=== PATIENT | male | born 1990 | race Caucasian/White ===

== ENCOUNTER 2024-04-29 19:45 | Observation (INO) | payer BC ==
[2024-04-29 20:12] LABS: Glucose,Whole Blood 126 mg/dL (70-110)
[2024-04-29 20:40] LABS: HCT 47.5 % (39.0-53.0); HGB 16.6 gm/dL (13.0-17.5); MCH 29.8 pg (25.0-35.0); MCHC 34.9 g/dL (31.0-37.0); MCV 85.5 fL (80.0-100.0); Mean Platelet Volume 6.9; Platelet Count 247 k/uL (150-450); RBC 5.56 m/uL (4.30-5.90); RDW 12.6 % (11.5-15.5)
[2024-04-29 20:57] LABS: INR 1.1 (<1.2)
[2024-04-29 21:00] LABS: ALT 28 U/L (4-49); AST 28 U/L (17-59); African American GFR (CKD) >90 (>60 ml/min/1.73 sqM); Albumin 4.9 g/dL (3.5-5.0); Alcohol <10 mg/dL; Alkaline Phosphatase 54 U/L (38-126); Anion Gap 17 mmol/L; Blood Urea Nitrogen 27 mg/dL (9-20); Calcium 9.4 mg/dL (8.4-10.2); Carbon Dioxide 16 mmol/L (22-30); Chloride 103 mmol/L (98-107); Glucose 126 mg/dL (74-99); Non-African American GFR(CKD) >90 (>60 ml/min/1.73 sqM); Potassium 4.5 mmol/L (3.5-5.1); Sodium 136 mmol/L (137-145); Total Bilirubin 1.6 mg/dL (0.2-1.3); Total Protein 7.8 g/dL (6.3-8.2)
[2024-04-29 21:31] LABS: Appearance,Urine Clear (Clear); Bilirubin,Urine Negative (Negative); Blood,Urine Small (Negative); Color,Urine Yellow; Glucose,Urine (UA) Negative (Negative); Ketones,Urine 4+ (Negative); Leukocyte Esterase,Urine Negative (Negative); Mucus,Urine Occasional /hpf; Nitrite,Urine Negative (Negative); PH, Urine 6.5 (5.0-8.0); Protein,Urine Trace (Negative); RBC,Urine 20 /hpf (0-5); Specific Gravity,Urine 1.032 (1.001-1.035); Urobilinogen,Urine <2.0 mg/dL (<2.0); WBC,Urine 1 /hpf (0-5)
[2024-04-29 21:34] LABS: Cocaine Screen,Urine Not Detected (NotDetected); Phencyclidine Screen,Urine Not Detected (NotDetected); Urn Cannabinoid Scrn Not Detected (NotDetected)
[2024-04-29 21:35] LABS: Amphetamine Screen,Urine Not Detected (NotDetected); Barbiturate Screen,Urine Not Detected (NotDetected); Benzodiazepines Screen,Urine Not Detected (NotDetected); Methadone Screen, Urine Not Detected (NotDetected); Opiate Screen,Urine Not Detected (NotDetected); Oxycodone Screen, Urine Not Detected (NotDetected); Tricyclic Antidepressant,Urine Not Detected (NotDetected)
[2024-04-29 21:42] LABS: Band Neutrophils % 4 %; Lymphocytes # (M) 0.17 k/uL (1.0-4.8); Monocytes # (M) 1.36 k/uL (0-1.0); Neutrophils % (M) 87 %; Nucleated Red Blood Cells 0 /100 WBC (0-0); Total Cells Counted 100; Toxic Vacuolation Present
[2024-04-29] MEDS: HYDROmorphone 1 MG/ML 1 ML SYRINGE IM STA (21:48)
[2024-04-29] MEDS: METOCLOPRAMIDE 5 MG/ML 2 ML VIAL IM STA (21:48)
[2024-04-29] MEDS: SODIUM CHLORIDE 0.9% 1,000 ML IV ONE (22:00)
[2024-04-29] MEDS: diphenhydrAMINE 50 MG/ML 1 ML VIAL IM STA (23:16)
[2024-04-29] MEDS: LORazepam 2 MG/ML INJ IM STA (23:17)
--- NOTE | 2024-04-29 23:28 | XR ---
EXAM: XR Chest, 1 View CLINICAL HISTORY: ITS.REASON XR Reason: altered mental status TECHNIQUE: Frontal view of the chest. COMPARISON: None FINDINGS: Patient is rotated. Lungs: No consolidation. No obvious focal lesions. Pleural space: No pleural effusion.. No pneumothorax. Heart: No cardiomegaly. Mediastinum: Normal mediastinal contour. Bones/joints: No acute fracture.. IMPRESSION: No acute cardiopulmonary process. .
[2024-04-30 00:08] LABS: Influenza A Not Detected (Not Detectd); Influenza B Not Detected (Not Detectd); RSV Not Detected (Not Detectd)
--- NOTE | 2024-04-30 00:26 | CT ---
EXAM: CT Head Without Intravenous Contrast CLINICAL HISTORY: ITS.REASON CT Reason: AMS TECHNIQUE: Axial computed tomography images of the head/brain without intravenous contrast. CTDI is 47.2 mGy and DLP is 1490.4 mGy-cm. This CT exam was performed using one or more of the following dose reduction techniques: automated exposure control, adjustment of the mA and/or kV according to patient size, and/or use of iterative reconstruction technique. COMPARISON: None. FINDINGS: Brain: There is no acute intracranial hemorrhage, mass-effect or midline shift. Ventricles: Unremarkable. No ventriculomegaly. Bones/joints: Unremarkable. No acute fracture. Soft tissues: Unremarkable. Sinuses: Small polypoid mucosal thickening of the maxillary sinuses. No acute sinusitis. Mastoid air cells: Unremarkable as visualized. No mastoid effusion.. IMPRESSION: No acute intracranial abnormality noted. .
[2024-04-30] MEDS: SODIUM CHLORIDE 0.9% 1,000 ML IV SCH ×2 (00:57→03:14)
[2024-04-30] MEDS: ACETAMINOPHEN IV (For NPO) 1,000 MG in EMPTY BAG 1 BAG IVPB STA (01:13)
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
[2024-04-30] MEDS ORDERED: KETOROLAC 15 MG/ML 1 ML VIAL IVP PRN (02:42)
[2024-04-30] MEDS ORDERED: NALOXONE 0.4 MG/ML 1 ML VIAL IV PRN (02:42)
[2024-04-30] MEDS ORDERED: ONDANSETRON 4 MG/2 ML VIAL IVP PRN (02:42)
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
[2024-04-30 05:58] LABS: Magnesium 1.4 mg/dL (1.6-2.3)
[2024-04-30 06:51] LABS: C Reactive Protein 3.7 mg/dL (<1.0)
[2024-04-30 08:32] LABS: Creatine Kinase 400 U/L (35-257)
[2024-04-30] MEDS: ENOXAPARIN 40 MG/0.4 ML SYRINGE SQ SCH (08:36)
[2024-04-30] MEDS: MAGNESIUM SULFATE-D5W PMX 1 GM in DEXTROSE/WATER 1 100ML.BAG IVPB SCH (10:16)
[2024-04-30 10:24] LABS: HGB 13.7 gm/dL (13.0-17.5); MCH 29.4 pg (25.0-35.0); MCHC 34.1 g/dL (31.0-37.0); MCV 86.1 fL (80.0-100.0); Mean Platelet Volume 6.7; Platelet Count 277 k/uL (150-450); RBC 4.65 m/uL (4.30-5.90); RDW 12.8 % (11.5-15.5); WBC 9.7 k/uL (3.8-10.6)
[2024-04-30 10:54] LABS: ALT 22 U/L (4-49); AST 29 U/L (17-59); African American GFR (CKD) >90 (>60 ml/min/1.73 sqM); Albumin 3.3 g/dL (3.5-5.0); Albumin/Globulin Ratio 1.3; Alkaline Phosphatase 37 U/L (38-126); Anion Gap 7 mmol/L; Blood Urea Nitrogen 18 mg/dL (9-20); Calcium 7.9 mg/dL (8.4-10.2); Carbon Dioxide 22 mmol/L (22-30); Chloride 107 mmol/L (98-107); Globulin 2.6 g/dL; Glucose 91 mg/dL (74-99); Magnesium 1.6 mg/dL (1.6-2.3); Non-African American GFR(CKD) >90 (>60 ml/min/1.73 sqM); Potassium 3.9 mmol/L (3.5-5.1); Sodium 136 mmol/L (137-145); Total Bilirubin 0.8 mg/dL (0.2-1.3); Total Protein 5.9 g/dL (6.3-8.2)
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
[2024-04-30 14:37] VITALS: BP 117/77; PULSE 98; RESP 16; TEMP 98
--- NOTE | 2024-05-03 10:11 | P.CNNES ---
History of Present Illness Consult date: 04/30/24 Requesting physician: Lv Del Toro Reason for Consult: Altered mental status History of Present Illness: Patient is a 34-year-old male came to the hospital by ambulance yesterday at 7:45 PM for a syncopal spell. Patient has developed acute gastroenteritis. Patient states that his son first got gastroenteritis, and then his and then himself. Patient states that at around 2-3 PM, he started vomiting and vomited about 4-5 times. He also had 2-3 bouts of watery diarrhea. He had some chills but no fever or any abdominal cramps. He believes that he got "super dehydrated" from puking and diarrhea. He has not eaten. He started feeling lightheadedness, tunnel vision from dehydration. He went to sleep on the couch, and apparently was not responding to people therefore they got concerned and b rought him here. As per EMS flowsheet, when they arrived, patient was prone on family room floor. Patient's mother states that patient started having nausea vomiting and diarrhea at about 2 PM. She states that within the last hour he became altered and not responding to her. Patient's eyes were open, he did not answer questions. Mother states that patient is healthy, no medical history, no me dications or allergies. Patient's pupils were equal and reactive. Patient was slightly combative and uncooperative. Patient was combative, repeatedly ripping off equipment. Patient had a vomiting in front of EMS as well. Patient was mildly combative throughout the transport. Blood glucose was 122. Blood pressure 100 x 60, pulse is 110, respiration 18, saturation 100%. Patient's vitals has been Tmax 99.5. Other vitals stable. Pulse rate 114. Blood test shows elevated WBC 17.0 hemoglobin 16.6, platelets are normal at 247. PT PTT normal, carbon monoxide 1.6, which is borderline. Sodium 136 potassium 4.5, normal renal and hepatic panel. Ammonia is slightly elevated 31. Troponin negative. CK4 100. UA negative. Urine drug screen negative. Blood alcohol level negative. Influenza, RSV and coronavirus PCR negative. Patient has been hydrated in the ER and he is feeling much better. He denies any headache, just feels slightly tired. Chest x-ray showed no acute cardiopulmonary process. EKG showed sinus rhythm. CT head showed no acute intracranial process. I personally reviewed CT head, agree with the findings. However, there is vague hypodensity in the left medial temporal lobe noted. Patient does not take any medication at home. Patient denies any history of hyp ertension, diabetes, tobacco or alcohol use. Patient denies any history of syncopal spell of passing out in the past. On asking about any head injury, patient says that he did have some concussion in 2010 while playing hockey. 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 Review of Systems All pertinent positive and negative review of systems mentioned in the HPI, otherwise unremarkable. Past Medical History Past Medical History: Unable to Obtain Past Surgical History: Unable to Obtain Medications and Allergies Home Medications Medication Instructions Recorded Confirmed Type No Known Home Medications 04/30/24 04/30/24 History Allergies Allergy/AdvReac Type Severity Reaction Status Date / Time No Known Allergies Allergy Unverified 04/30/24 10:52 Physical Examination - Vital Signs Vital Signs: Vital Signs Temp Pulse Resp BP Pulse Ox 04/30/24 10:00 103 H 18 108/70 97 04/30/24 08:34 98.1 F 111 H 18 102/70 98 04/30/24 06:23 107 H 18 107/64 98 04/30/24 05:24 101 H 18 100 04/30/24 03:24 114 H 18 102/46 96 04/30/24 02:18 121 H 20 114/57 95 04/30/24 00:24 99.5 F 04/29/24 22:36 99.0 F 117 H 20 122/64 100 04/29/24 19:47 98.0 F 100 20 114/43 100 Intake and Output 04/29/24 04/30/24 04/30/24 22:59 06:59 14:59 Output Total 500 Balance -500 Output: Urine 500 Other: Weight 65.771 kg Patient is a young male, in no acute distress. Patient is alert awake oriented to time place and person. He knows it is 04/29/2024 and that he is in [employer] in [facility]. Speech and language functions are normal. Patient can name and repeat very well. No aphasia or dysarthria. Attention, concentration and fund of knowledge is adequate. On cranial nerve examination, pupils are equal, round and reacting to light, visual graves are full on confrontation, with no neglect on double simultaneous stimulation. Extraocular muscles are intact with no nystagmus. Face is symmetric, tongue protrudes to the midline. Palatal elevation and sensation normal, hearing and shoulder shrug normal, facial sensation normal. On muscle strength testing, there is no pronator drift and the strength is normal in arms and legs distally and proximally. Deep tendon reflexes are symmetric 1+ all over and plantars downgoing. Sensory to touch is equal with no neglect on double simultaneous stimulation. Cerebellar function showed no ataxia for [id number] testing. No dysdiadochokinesia. No ataxia for uosy-xy-tart testing on either side. Tone and bulk of muscles normal. Gait deferred.. On general examination, there is no carotid bruit or murmur, S1-S2 audible. Chest is clear on consultation. Abdomen is soft nontender. No organomegaly, bowel sounds present. Peripheral pulses are present. No peripheral edema. Results - Laboratory Findings CBC and BMP: 04/30/24 10:10 04/30/24 10:10 Abnormal Lab Findings: Abnormal Labs 04/29/24 04/29/24 04/29/24 20:06 20:34 20:34 WBC 17.0 H Neutrophils # (Manual) 15.40 H Lymphocytes # (Manual) 0.17 L Monocytes # (Manual) 1.36 H Sodium 136 L Carbon Dioxide 16 L BUN 27 H Glucose 126 H POC Glucose (mg/dL) 126 H Magnesium Total Bilirubin 1.6 H Ammonia Creatine Kinase C-Reactive Protein Urine Protein Urine Ketones Urine Blood Urine RBC Urine Mucus 04/29/24 04/29/24 04/30/24 20:34 21:01 04:51 WBC Neutrophils # (Manual) Lymphocytes # (Manual) Monocytes # (Manual) Sodium Carbon Dioxide BUN Glucose POC Glucose (mg/dL) Magnesium Total Bilirubin Ammonia 31 H Creatine Kinase 400 H C-Reactive Protein Urine Protein Trace H Urine Ketones 4+ H Urine Blood Small H Urine RBC 20 H Urine Mucus Occasional H 04/30/24 04:51 WBC Neutrophils # (Manual) Lymphocytes # (Manual) Monocytes # (Manual) Sodium Carbon Dioxide BUN Glucose POC Glucose (mg/dL) Magnesium 1.4 L Total Bilirubin Ammonia Creatine Kinase C-Reactive Protein 3.7 H Urine Protein Urine Ketones Urine Blood Urine RBC Urine Mucus Assessment and Plan Assessment: * Syncopal spell, likely due to dehydration, hypovolemia leading to orthostasis and syncope. * Acute gastroenteritis, improved. * Rhabdomyolysis, mild. Plan: * Patient's mentation is normal. Examination is nonfocal. * Continue hydration. * No other neurological workup indicated. * Neurologically clear for discharge. Discussed with primary team. * Thank you for the consult.
== END 2024-04-30 14:42 | disposition home or self-care (01) ==
LOC: EC 19:45 → 6NMEDSUR 04-30 02:43
PROVIDERS: ADMIT Internal Medicine; ATTEND Internal Medicine
DX: E86.0 Dehydration (principal); K52.9 Noninfective gastroenteritis and colitis, unspecified; E83.42 Hypomagnesemia; E86.1 Hypovolemia; M62.82 Rhabdomyolysis; E87.20 Acidosis, unspecified; D72.829 Elevated white blood cell count, unspecified; R17 Unspecified jaundice; R00.0 Tachycardia, unspecified; Z87.820 Personal history of traumatic brain injury
CPT/HCPCS: 96361 ×2; 96365; 96366; 96367; 96372; 99285; 51798; 36415 ×2; 93005; 83930; 80053 ×2; 84443; 82140; 82375; 82550; 83605; 83735; 84484; 85025; 85027; 85610; 85730; 86140; 81001; 87040; 80306; 80320; 87636; 71045; 70450; G0378; J2060; J1200; J2765; J0696; J1171; J3475; J0131